=== PATIENT | male | born 1965 | race Caucasian/White ===

== ENCOUNTER 2018-04-16 20:57 | Emergency (ER) | payer OTHER, BC ==
[2018-04-16] MEDS ORDERED: TYLENOL ONE (21:27)
[2018-04-16] MEDS ORDERED: TYLENOL PO ONE (21:27)
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
[2018-04-17] MEDS ORDERED: NORCO 5/325 PO ONE (01:35)
[2018-04-17] MEDS ORDERED: MOTRIN PO ONE (01:35)
[2018-04-17] MEDS ORDERED: FLEXERIL PO ONE (01:35)
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
[2018-04-17 03:50] VITALS: BP 129/88
== END 2018-04-17 03:50 | disposition home or self-care (01) ==
LOC: ED 20:57
DX: M25.511 Pain in right shoulder (principal); R07.89 Other chest pain; E11.9 Type 2 diabetes mellitus without complications; V49.49XA Driver injured in collision with other motor vehicles in traffic accident, initial encounter; Y93.89 Activity, other specified; Y92.410 Unspecified street and highway as the place of occurrence of the external cause; Y99.8 Other external cause status